=== PATIENT | male | born 2000 | race Caucasian/White ===

== ENCOUNTER 2023-03-17 03:58 | Emergency (ER) | payer OTHER, SELFPAY ==
[2023-03-17 03:59] VITALS: PULSE 55; RESP 16; TEMP 36.3; O2SAT 100
--- NOTE | 2023-03-17 03:59 | W.ED.GENAD ---
Discharge Plan Disposition Patient Disposition: Home Condition: Improving Discharge Details Clinical Impression: UTI (urinary tract infection), Hematuria ED Provider: Morena Kim Home Meds and New Rx's Prescriptions: New ciprofloxacin HCl [Cipro] 500 mg tablet 500 mg PO BID 6 Days Qty: 12 0RF Continued escitalopram oxalate 10 mg tablet 2.5 mg PO DAILY Discharge Instructions Instructions: Urinary Tract Infection in Men (ED), Hematuria (ED) Additional Instructions: Your urinalysis shows blood and white blood cells which likely indicate an infection. Your kidney function today is reassuring. You were given a paper prescription for your antibiotic to fill to start tomorrow evening. Finish the rest of your antibiotic pills that you were given to go before starting the prescription. You can take the urinary analgesic medication Pyridium to help with burning or discomfort. This can also be purchased [id number] under the generic name phenazopyridine. You have been placed on urology follow-up list for reevaluation with Dr. Jean. Return immediately to the emergency department if you develop any worsening or new concerning symptoms such as fever, increased pain, bleeding or any other concerns. Referrals: Anderson Jean MD [ [facility] STAFF PHYSICIAN] - Discharge Data Discharge Physician: Morena Kim Medical Decision Making 22-year-old male with a history of UTI after anal intercourse in October 2022 presents with dysuria, hematuria, urinary frequency and urgency for the past several hours after going in a hot tub. Patient appears comfortable and nontoxic. His abdomen is soft and nontender. Normal exam. Able to obtain a urine sample. He declines any STI treatment. Urinalysis notes greater than 50 RBCs, small leukocyte esterase, greater than 300 protein. Will obtain screening labs to assess renal function. Renal function within normal limits. Patient reassessed and he reports he is feeling better. Discussed with patient that his presentation does not appear consistent with a kidney stone as he has no significant pain and appears comfortable. Discussed that as his renal function is reassuring the likelihood of an obstruction is low. Patient is agreeable and declines imaging at this time. He states he responded well to Cipro in the fall. He was given Cipro here in addition to doses to go and a paper prescription to fill in [place]. Patient is returning back to here next week and staying here all summer. He was placed on Dr. Jean's list for reevaluation and for consideration of cystoscopy in a male patient with 2 UTIs in the span of 5 months. Usual and customary return precautions given prior to discharge. Medical Records Medical records reviewed: Yes I reviewed the patient's medical records. Lab Data Lab results reviewed: Yes I reviewed the patient's lab results. Labs: 03/17/23 04:05 Urine - Reflex from Ua Urine Culture - Pending Laboratory Tests Range/Units 03/17/23 04:05 Urine Color (Yellow) Red Urine Clarity (Clear) Cloudy Urine pH (5-8) 7.0 Ur Specific [place] (1.005-1.025) 1.025 Urine Protein (Negative) mg/dL >=300 H Urine Ketones (Negative) mg/dL Negative Urine Blood (Negative) Small H Urine Nitrite (Negative) Negative Urine Bilirubin (Negative) Negative Urine Urobilinogen (Up to 0.2) mg/dL 0.2 Ur Leukocyte Esterase (Negative) Small H Urine RBC (0-2) HPF >50 H Urine WBC (0-5) HPF Ur Epithelial Cells (Negative) HPF Urine Crystals (Negative) HPF Urine Bacteria (Negative) HPF Urine Mucus (Negative) Ur Culture Indicated? Yes Urine Glucose (Negative) mg/dL Negative HPI General Mode of arrival: ambulatory. Date/Time Provider Initiated Documentation: 03/17/23 03:58. Limitations to Documentation: no limitations. Information obtained by: patient. HPI Narrative: Patient is a 22-year-old male with a history of anxiety who presents with dysuria, hematuria, urinary frequency and urgency since last night at 9 PM. Patient states he was in a hot tub 2 hours prior to onset of symptoms. He states he was wearing underwear when in the hot tub. Patient reports that initially last night he noted a pink tinge mixed with his yellow urine. He states since then he has noted bright red streaking with some small bright red blood clots. Patient admits to some burning with urination but mainly has some suprapubic pressure. He denies any known fever, nausea, vomiting, penile discharge or genital lesions. Patient states he was first diagnosed with a UTI at [facility] in October 2022 after having unprotected anal intercourse with his girlfriend. He reports he had lost 2 doses of the antibiotics and states his symptoms were improving but then they returned and he was seen again shortly after that at urgent care and treated with a stronger antibiotic which she reports is Cipro. He states patient shis symptoms completely resolved at that time. Patient states he has not seen urology in the past. He denies any recent injury, foreign body insertion, known exposure to STDs, or multiple partners. Patient states he is sexually active with his girlfriend and does not use protection. Related Data Home Medications Medication Instructions Recorded Confirmed escitalopram oxalate 10 mg tablet 2.5 mg PO DAILY 04/29/22 03/17/23 ciprofloxacin HCl 500 mg tablet 500 mg PO BID 6 days #12 tabs 03/17/23 (Cipro) Previous Rx's Medication Instructions Recorded ciprofloxacin HCl 500 mg tablet 500 mg PO BID 6 days #12 tabs 03/17/23 (Cipro) Allergies Allergy/AdvReac Type Severity Reaction Status Date / Time No Known Allergies Allergy Verified 03/17/23 04:05 General Stated Complaint: Urinary FE: 4 Review of Systems All systems reviewed & are unremarkable except as noted in HPI and below Constitutional Constitutional: Reports as per HPI, Denies chills and Denies fever(s) Eyes Eyes: Denies blurry vision ENT Ears, Nose, Mouth, and Throat: Denies dizziness, Denies sore throat and Denies throat swelling Cardiovascular Cardiovascular: Denies chest pain and Denies dyspnea Respiratory Respiratory: Denies cough and Denies dyspnea Gastrointestinal Gastrointestinal: Denies abdominal pain, Denies diarrhea and Denies vomiting Genitourinary Genitourinary: Reports hematuria, Reports dysuria, Reports urinary frequency and Reports urinary urgency Musculoskeletal Musculoskeletal: Denies back pain and Denies numbness Integumentary/Breasts Skin/Breast: Denies lesions and Denies rash Neurologic Neurologic: Denies dizziness, Denies localized weakness and Denies numbness Allergic/Immunologic Allergic/Immunologic: Denies throat swelling [facility] All Active Problems (Updated 03/17/23 @ 05:13 by Morena Kim DO) UTI (urinary tract infection) (Acute) Hematuria (Acute) Medical History (Updated 03/17/23 @ 05:13 by Morena Kim DO) Anxiety Surgical History (Updated 03/17/23 @ 04:29 by Morena Kim DO) History of dental surgery Social History Smoking/Tobacco Use Status: Current every day Smoking risk assessment performed?: Yes Alcohol Intake: never Drug use: Never Substance use type: does not use Do you feel safe at home: Yes Do you feel safe in your relationship?: Yes Exam Const General: cooperative and no acute distress Orientation: alert, awake and oriented x3 HENMT Head: normal to inspection Face and sinus: normal facial exam Eyes General: appearance normal, both eyes and all related structures Pupils: PERRL EOM: EOM intact bilaterally Neck Neck: normal visual inspection and No submandibular swelling Lymphatic: no lymphadenopathy noted Chest Chest: normal inspection of the chest and no tenderness Resp Effort & Inspection: normal respiratory effort and able to speak in complete sentences Auscultation: clear to auscultation bilaterally Cardio Rate: regular rate Rhythm: regular rhythm GI Inspection: normal to inspection Palpation: soft, not firm, not rigid and nontender Auscultation: hypoactive bowel sounds Male General Exam: Yes normal external exam Penis: normal penis Scrotum: scrotum normal Skin General skin exam: no rashes or lesions noted Neuro General: patient alert, patient awake and patient oriented x3 Cognition: normal cognition Speech: speech normal Motor: muscle tone normal throughout Sensory Exam: no sensory deficits noted Extrem General: normal to inspection, full ROM, capillary refill normal, no calf tenderness bilaterally and no edema Psych Appearance: grossly normal Mental Status: mental status grossly normal Speech and Movement: speech and movement normal Affect: normal affect
[2023-03-17 04:27] LABS: Clarity Cloudy (Clear)
[2023-03-17 04:28] LABS: Glucose Negative (Negative); Leukocyte Esterase Small (Negative); Nitrite Negative (Negative); Specific Gravity 1.025 (1.005-1.025)
[2023-03-17 04:29] LABS: Bilirubin Negative (Negative); Blood Small (Negative); Ketones Negative (Negative); RBC >50 HPF (0-2); Urobilinogen 0.2 mg/dL (Up to 0.2)
[2023-03-17 04:30] LABS: C & S Indicated? Yes
[2023-03-17 04:43] LABS: Abs Immature Grans 0.03 10^3/uL (0.0-0.06); Absolute Basophil Count 0.08 10^3/uL (0.0-0.2); Absolute Eosinophil Count 0.28 10^3/uL (0.0-0.7); Absolute Lymphocyte Count 2.15 10^3/uL (1.2-3.4); Absolute Neutrophil Count 7.94 10^3/uL (1.2-6.7); Basophils % 0.7; Eosinophils % 2.5; HCT 44.2 % (40.0-50.0); HGB 15.1 g/dL (13.5-17.5); Immature Grans % 0.3; Lymphocytes % 18.9; MCH 30.8 pg (27.0-33.0); MCHC 34.2 % (32.0-36.0); MCV 90 fL (80-95); MPV 11.2 fL (8.0-11.0); Monocytes % 7.7; Neutrophils % 69.9; Platelet Count 247 10^3/uL (130-400); RBC 4.91 10^6/uL (4.36-5.78); RDW 11.9 % (11.8-14.1); RDW-SD 39.7 fL; WBC 11.36 10^3/uL (4.4-10.8)
[2023-03-17 04:47] LABS: Absolute Monocyte Count 0.87 10^3/uL (0.1-0.8)
[2023-03-17 04:59] LABS: ALT 53 U/L (16-63); AST 17 U/L (15-37); Albumin 4.4 g/dL (3.4-5.0); Alkaline Phosphatase 49 U/L (46-116); Anion Gap 8.1 mmol/L (3-11); BUN 13 mg/dL (7-18); Bilirubin, Total 0.8 mg/dL (0.2-1.0); CO2 29.9 mmol/L (21.0-32.0); Calcium 9.1 mg/dL (8.5-10.1); Chloride 103 mmol/L (98-107); Estimated GFR 109.13 (mL/min/1.73m2); Glucose 88 mg/dL (74-106); Potassium 3.8 mmol/L (3.5-5.1); Sodium 141 mmol/L (136-145); Total Protein 7.3 g/dL (6.4-8.2)
[2023-03-17] MEDS: Ciprofloxacin 500 MG TAB PO (05:14)
[2023-03-17] MEDS: Phenazopyridine 100 MG TAB, 2 TABS/BTL PO (05:14)
[2023-03-17] MEDS: Phenazopyridine 100 MG TAB PO (05:14)
--- NOTE | 2023-03-17 05:21 | NUR.NOTE ---
Referral faxed to [facility] Urology to f/u for UTI.Nursing Note:
[2023-03-17 05:22] VITALS: BP 132/70; PULSE 71; RESP 16; O2SAT 99
== END 2023-03-17 05:23 | disposition home or self-care (01) ==
LOC: ER 05:29
PROVIDERS: Emergency Provider Physician Assistant; PCP Family Medicine
DX: N39.0 Urinary tract infection, site not specified (principal); R31.9 Hematuria, unspecified; B95.8 Unspecified staphylococcus as the cause of diseases classified elsewhere
CPT/HCPCS: 36415; 80053; 87077; 99283; 81003; 81015; 85025; 87086; 99284

== ENCOUNTER 2023-06-02 21:30 | Emergency (ER) | payer OTHER, SELFPAY ==
--- NOTE | 2023-06-02 21:30 | RT.EKG_ITS ---
APPROVED REPORT Exam: Resting ECG Reason for Exam: short of breath Patient Location: E HR:47 bpm ECG Measurements Heart Rate 47 AXIS HI 160 P 16 QRSd 108 QRS 66 QT 454 T 43 QTc 401 Conclusion Sinus bradycardia...rate< 60 ST elev, probable normal early repol pattern...ST elevation, age<55
[2023-06-02 21:36] VITALS: BP 131/83; PULSE 53; RESP 26; TEMP 37.1; O2SAT 100
[2023-06-02 21:40] VITALS: RESP 26
--- NOTE | 2023-06-02 21:46 | W.ED.GENAD ---
Discharge Plan Disposition Patient Disposition: Home Condition: Stable Discharge Details Clinical Impression: Panic attack Primary Care Provider: CARLOS BOYKIN ED Provider: Jon Hudson Home Meds and New Rx's Prescriptions: New lorazepam 1 mg tablet 1 mg PO TID PRN (Reason: anxiety) Qty: 12 0RF Continued escitalopram oxalate 10 mg tablet 2.5 mg PO DAILY Discharge Instructions Instructions: Panic Attack (ED) Additional Instructions: call [facility] at [phone] if you feel more ill, have severe pain or difficulty breathing return to the emergency department Medical Decision Making 22 yo male with hx of anxiety comes in with chief complaint of feeling anxious and like he's having a panic attack. Does have a history of both and has been under a lot of life stress per pt, no si/hi. He was sitting and then felt wind in his ears then started to hyperventilate, feel shaky and sweaty and so came here. He feels like he is going to . He arrives hemodynamically stable and appears very anxious, is tearful during exam and shaking his hands. He has no chest pain, vomiting, abdominal pain. He is caox4, speaking clearly, has clear lungs, no murmurs, no jvd, soft nontender abdomen. His history and is exam is consistent with a panic attack, will treat with ativan and reassess. Given his stable vitals and age do not feel workup for acs, pe or dissection indicated at this time. He is perc negative, heart score is 0, and has no tearing back pain and equal peripheral pulses in the arms and legs so doubt dissection pt stable, much less anxious appearing and he states he feel well and at baseline, do not feel further testing indicated, will provide short course of as needed ativan and provided [facility] number to call, return precautions given Differential Diagnosis Differential Diagnosis: anxiety, panic attack ECG Data Attestation: I personally reviewed and interpreted this ECG (s) as follows: Prior ECG tracings: not available for review Interpretation: sinus lawrence rate of 47, pr 160, qtc 454, no acute ischemic findings HPI General Mode of arrival: ambulatory. Date/Time Provider Initiated Documentation: 06/02/23 21:30. Limitations to Documentation: no limitations. Information obtained by: patient. History of Present Illness 22 year old M presents to the emergency department with the chief complaint of anxious/panic, described as moderate, Patient started experiencing this hour(s) (1) and it has been constant. No relieving factors improve symptom(s), No exacerbating factors reported . Patient notes shortness of breath; denies chest pain. Patient did receive the following treatments prior to arrival, none Related Data Home Medications Medication Instructions Recorded Confirmed escitalopram oxalate 10 mg tablet 2.5 mg PO DAILY 04/29/22 06/02/23 lorazepam 1 mg tablet 1 mg PO TID PRN anxiety #12 tabs 06/02/23 Previous Rx's Medication Instructions Recorded lorazepam 1 mg tablet 1 mg PO TID PRN anxiety #12 tabs 06/02/23 Allergies Allergy/AdvReac Type Severity Reaction Status Date / Time No Known Allergies Allergy Verified 06/02/23 21:39 General Stated Complaint: Anxiety FE: 4 Review of Systems All systems reviewed & are unremarkable except as noted in HPI and below Constitutional Constitutional: Denies chills, Denies fever(s) and Denies weakness Cardiovascular Cardiovascular: Denies chest pain and Reports dyspnea Respiratory Respiratory: Denies cough and Reports dyspnea Gastrointestinal Gastrointestinal: Denies abdominal pain Genitourinary Genitourinary: Denies dysuria Neurologic Neurologic: Denies weakness PFSH All Active Problems (Updated 06/02/23 @ 22:05 by Jon Hudson MD) Panic attack (Acute) Medical History (Updated 06/02/23 @ 22:05 by Jon Hudson MD) Anxiety Surgical History (Updated 03/17/23 @ 04:29 by Morena Kim DO) History of dental surgery Social History Smoking/Tobacco Use Status: Current every day Tobacco Type: cigarettes Smoking risk assessment performed?: Yes Alcohol Intake: never Drug use: Never Substance use type: does not use Housing: house Do you feel safe at home: Yes Do you feel safe in your relationship?: Yes Exam Const General: no acute distress and anxious Orientation: alert HENMT Head: normal to inspection Ears: external ears normal General nose exam: external nose normal Mouth: moist mucous membranes Eyes General: appearance normal, both eyes and all related structures Neck Neck: normal visual inspection Resp Effort & Inspection: normal respiratory effort and able to speak in complete sentences Cardio Rate: regular rate Skin General skin exam: no rashes or lesions noted Neuro General: patient alert and patient oriented x3 Extrem General: normal to inspection Psych Mental Status: mental status grossly normal Course Vital Signs Vital signs: Vital Signs Temperature 37.1 C 06/02/23 21:36 Pulse 53 L 06/02/23 21:36 Respiratory Rate 26 H 06/02/23 21:36 Blood Pressure 131/83 06/02/23 21:36 Pulse Oximetry 100 06/02/23 21:36 Temperature 37.1 C 06/02/23 21:36 Temperature Source Temporal Artery Scan 06/02/23 21:36 Pulse 53 L 06/02/23 21:36 Respiratory Rate 26 H 06/02/23 21:40 Respiratory Effort Normal, Non-Labored 06/02/23 21:40 Respiratory Depth Shallow 06/02/23 21:40 Respiratory Pattern Tachypnea 06/02/23 21:40 Blood Pressure 131/83 06/02/23 21:36 Blood Pressure Position Sitting 06/02/23 21:36 Pulse Oximetry 100 06/02/23 21:36 Oxygen Delivery Method Room Air 06/02/23 21:36 Oxygen Flow Rate 0 06/02/23 21:36 Pain Level 0 06/02/23 21:36
[2023-06-02] MEDS: LORazepam 2 MG/ML VIAL 1 MG IVP (21:56)
[2023-06-02 22:55] VITALS: BP 105/57; PULSE 50; RESP 16; TEMP 36.9; O2SAT 97
== END 2023-06-02 23:06 | disposition home or self-care (01) ==
PROVIDERS: Emergency Provider Emergency Medicine; PCP Family Medicine
DX: F41.0 Panic disorder [episodic paroxysmal anxiety] (principal); F41.9 Anxiety disorder, unspecified
CPT/HCPCS: 93005; 96374; 99284; 93010; J2060